=== PATIENT | male | born 1960 | race Caucasian/White ===

== ENCOUNTER → 2023-09-26 11:56 | Outpatient (REF) | payer OTHER, SELFPAY | LOC: RAD 11:56 | PROVIDERS: ATTENDING PHYSICIAN Nurse Practitioner | DX: M25.561 Pain in right knee (principal) | CPT/HCPCS: 73564 ==

== ENCOUNTER → 2024-07-22 07:00 | Outpatient (REF) | payer OTHER, SELFPAY | LOC: MRI 3T 07:00 | PROVIDERS: ATTENDING PHYSICIAN Nurse Practitioner; FAMILY PHYSICIAN Internal Medicine | DX: H53.2 Diplopia (principal) | CPT/HCPCS: 70544 ==

== ENCOUNTER → 2024-10-15 15:01 | Outpatient (REF) | payer OTHER, SELFPAY | LOC: RAD 15:01 | PROVIDERS: ATTENDING PHYSICIAN Nurse Practitioner | DX: M25.512 Pain in left shoulder (principal) | CPT/HCPCS: 73030 ==